=== PATIENT | male | born 1950 | race Caucasian/White ===

== ENCOUNTER 2017-11-12 06:27 | Emergency (ER) | payer MEDICARE ==
[~2017-11-12 06:27] MED LIST: APIX5TAB PO; ASPI-1181 PO; ATOR10 PO; FENO160T16 PO; LISI10TA7 PO; METO50TA18 PO; PANT40TA25 PO; SUCR1ORA3 PO
[2017-11-12] MEDS ORDERED: ONDANSETRON HCL 4 MG/2 ML VIAL ONE (06:58)
[2017-11-12] MEDS ORDERED: MORPHINE SULFATE 4 MG/1ML SYG ONE ×2 (06:59→08:36)
[2017-11-12 07:08] LABS: BASOPHILS % (AUTO) 0.6 % (0.0-5.0); EOSINOPHILS % (AUTO) 1.2 % (0.0-8.0); HEMATOCRIT 46.8 % (42-54); LYMPHOCYTES % (AUTO) 21.4 % (21.0-51.0); MEAN CORPUSCULAR HGB CONC 34.1 g/dL (32.0-36.0); MEAN CORPUSCULAR VOLUME 85.1 fL (79-99); MONOCYTES % (AUTO) 6.3 % (3.0-13.0); NEUTROPHILS % (AUTO) 70.5 % (40.0-77.0); PLATELET COUNT (AUTO) 260 K/uL (130-400); RED CELL DISTRIBUTION WIDTH 13.9 % (11.0-15.5); WHITE BLOOD COUNT (AUTO) 9.5 K/uL (4.8-10.8)
[2017-11-12 07:11] LABS: APPEARANCE,URINE Cloudy (CLEAR); BILIRUBIN,URINE Negative (NEGATIVE); COLOR,URINE Yellow (YELLOW); GLUCOSE, URINE (UA) Negative (NEGATIVE); KETONES,URINE Negative (NEGATIVE); LEUKOCYTE ESTERASE ,URINE Trace (NEGATIVE); NITRATE,URINE Negative (NEGATIVE); OCCULT BLOOD,URINE Large (NEGATIVE); PROTEIN,URINE POS 1+ (NEGATIVE)
[2017-11-12 07:18] LABS: CREATININE 1.3 mg/dL (0.5-1.5); POTASSIUM 4.6 mmol/L (3.5-5.1)
[2017-11-12 07:28] LABS: ALBUMIN 4.4 g/dL (3.5-5.0); BILIRUBIN,TOTAL 0.7 mg/dL (0.2-1.0); TOTAL PROTEIN, SERUM 8.7 g/dL (6.0-8.3)
[2017-11-12 07:31] LABS: BACTERIA,URINE Few /HPF (None Seen); WBC,URINE 0-1 /HPF (0-1)
[2017-11-12 07:32] LABS: AMORPHOUS SEDIMENT,UR Moderate /LPF (None Seen); SQUAMOUS EPITHELIAL CELL,UR Rare /HPF (0-2)
[2017-11-12 07:34] LABS: RBC,URINE >100 /HPF (0-1)
[2017-11-12] MEDS ORDERED: SODIUM CHLORIDE 0.9% 500ML 500 ML IV ONE (08:36)
[2017-11-12] MEDS ORDERED: KETOROLAC TROMETHAMINE 30MG/ML ONE (08:36)
[2017-11-12] MEDS ORDERED: PROMETHAZINE HCL 25 MG/ML 1ML AMPULE IM ONE (08:36)
== END 2017-11-12 09:57 | disposition home or self-care (01) ==
LOC: EDH 06:27
DX: N20.0 Calculus of kidney (principal); N13.30 Unspecified hydronephrosis; E78.5 Hyperlipidemia, unspecified; I10 Essential (primary) hypertension; I48.92 Unspecified atrial flutter; E11.9 Type 2 diabetes mellitus without complications; I25.10 Atherosclerotic heart disease of native coronary artery without angina pectoris; Z98.62 Peripheral vascular angioplasty status; Z79.4 Long term (current) use of insulin
CPT/HCPCS: 36415; 74176; 80053; 81001; 84484; 85025; 93005; 96374; 96375; 96376; 99285; J1885; J2270 ×2; J2405; J2550; J7040

== ENCOUNTER 2018-02-12 20:05 | Emergency (ER) | payer MEDICARE ==
[2018-02-12 20:36] LABS: APPEARANCE,URINE Cloudy (CLEAR); BILIRUBIN,URINE Negative (NEGATIVE); COLOR,URINE Yellow (YELLOW); GLUCOSE, URINE (UA) Negative (NEGATIVE); KETONES,URINE Negative (NEGATIVE); LEUKOCYTE ESTERASE ,URINE Trace (NEGATIVE); NITRATE,URINE Negative (NEGATIVE); OCCULT BLOOD,URINE Large (NEGATIVE); PH,URINE 6.5 (5.0-8.0); PROTEIN,URINE POS 1+ (NEGATIVE)
[2018-02-12 20:44] LABS: BACTERIA,URINE None Seen /HPF (None Seen); RBC,URINE 26-50 /HPF (0-1)
[2018-02-12] MEDS ORDERED: SODIUM CHLORIDE 0.9% 1000ML 2,000 ML IV ONE (20:46)
[2018-02-12] MEDS ORDERED: ONDANSETRON HCL 4 MG/2 ML VIAL ONE (20:46)
[2018-02-12] MEDS ORDERED: KETOROLAC TROMETHAMINE 30MG/ML ONE (20:47)
[2018-02-12] MEDS ORDERED: TAMSULOSIN HCL 0.4 MG CAP.ER.24H ONE (20:47)
[2018-02-12] MEDS ORDERED: TRAMADOL /APAP 37.5MG/325MG TAB ONE (20:48)
[2018-02-12 20:49] LABS: BASOPHILS % (AUTO) 0.4 % (0.0-5.0); EOSINOPHILS % (AUTO) 0.8 % (0.0-8.0); HEMATOCRIT 46.6 % (42-54); LYMPHOCYTES % (AUTO) 14.1 % (21.0-51.0); MEAN CORPUSCULAR HEMOGLOBIN 29.2 pg (27.0-33.0); MEAN CORPUSCULAR HGB CONC 33.8 g/dL (32.0-36.0); MEAN CORPUSCULAR VOLUME 86.5 fL (79-99); MONOCYTES % (AUTO) 8.5 % (3.0-13.0); NEUTROPHILS % (AUTO) 76.2 % (40.0-77.0); PLATELET COUNT (AUTO) 228 K/uL (130-400); RED BLOOD CELL COUNT(AUTO) 5.39 MIL/uL (4.50-6.20); RED CELL DISTRIBUTION WIDTH 13.9 % (11.0-15.5); WHITE BLOOD COUNT (AUTO) 13.2 K/uL (4.8-10.8)
[2018-02-12 20:59] LABS: CREATININE 1.7 mg/dL (0.5-1.5); POTASSIUM 4.5 mmol/L (3.5-5.1)
[2018-02-12 21:04] LABS: ALBUMIN 4.2 g/dL (3.5-5.0); BILIRUBIN,TOTAL 0.6 mg/dL (0.2-1.0); TOTAL PROTEIN, SERUM 8.8 g/dL (6.0-8.3)
[2018-02-12] MEDS ORDERED: ACETAMINOPHEN-CODEINE ELIXIR 5 ML UDCUP ONE (21:05)
[2018-02-12] MEDS ORDERED: CEFTRIAXONE SODIUM 1 GM ONE (21:05)
== END 2018-02-12 21:48 | disposition home or self-care (01) ==
LOC: EDH 20:05
DX: N39.0 Urinary tract infection, site not specified (principal); N20.1 Calculus of ureter; N23 Unspecified renal colic; I10 Essential (primary) hypertension; I48.91 Unspecified atrial fibrillation; I48.92 Unspecified atrial flutter; Z85.46 Personal history of malignant neoplasm of prostate; Z87.891 Personal history of nicotine dependence
CPT/HCPCS: 36415; 74176; 80053; 81001; 85025; 96374; 96375; 99285; J0696; J1885; J2405; J7030

== ENCOUNTER → 2021-11-14 | Outpatient (CLI) | payer MEDICARE ==
[~2021-11-14] MED LIST changes: +ALLO100T PO; -APIX5TAB PO; -ASPI-1181 PO; +ASPI-1443 PO; +CLOP75TA14 PO; +FAMO20TA8 PO; +LISI10TA24 PO; -LISI10TA7 PO; -PANT40TA25 PO; +POTA10TA19 PO; -SUCR1ORA3 PO; +TAMS-1 PO
== END | disposition home or self-care (01) ==
LOC: SHCH 09:32
PROVIDERS: ATTEND Internal Medicine Cardiovascular Disease
DX: I48.0 Paroxysmal atrial fibrillation (principal); I11.9 Hypertensive heart disease without heart failure; I48.92 Unspecified atrial flutter; Z95.5 Presence of coronary angioplasty implant and graft; Z98.890 Other specified postprocedural states
CPT/HCPCS: 93306

== ENCOUNTER 2022-06-03 01:36 | Inpatient (IN) | payer MEDICARE ==
[~2022-06-03] VITALS: Ht 185.4 cm; Wt 125.6 kg
[~2022-06-03 01:36] MED LIST changes: +CLOP-31 PO; -CLOP75TA14 PO
[2022-06-03 02:08] LABS: BASOPHILS % (AUTO) 0.6 % (0.0-5.0); EOSINOPHILS % (AUTO) 2.3 % (0.0-8.0); HEMATOCRIT 44.8 % (42-54); LYMPHOCYTES % (AUTO) 30.4 % (21.0-51.0); MEAN CORPUSCULAR HEMOGLOBIN 29.1 pg (27.0-33.0); MEAN CORPUSCULAR HGB CONC 34.2 g/dL (32.0-36.0); MEAN CORPUSCULAR VOLUME 85.3 fL (79-99); MONOCYTES % (AUTO) 10.1 % (3.0-13.0); NEUTROPHILS % (AUTO) 55.8 % (40.0-77.0); PLATELET COUNT (AUTO) 301 K/uL (130-400); RED BLOOD CELL COUNT(AUTO) 5.25 MIL/uL (4.50-6.20); RED CELL DISTRIBUTION WIDTH 13.7 % (11.0-15.5); WHITE BLOOD COUNT (AUTO) 9.4 K/uL (4.8-10.8)
[2022-06-03 02:55] LABS: CREATININE 1.2 mg/dL (0.5-1.5); POTASSIUM 4.3 mmol/L (3.5-5.1)
[2022-06-03 03:00] LABS: ALBUMIN 3.8 g/dL (3.5-5.0); MAGNESIUM 1.9 mg/dL (1.80-2.40); TOTAL PROTEIN, SERUM 7.7 g/dL (6.0-8.3)
[2022-06-03] MEDS ORDERED: HEPARIN 5,000 UNIT VIAL ONE (03:27)
[2022-06-03] MEDS ORDERED: HEPARIN 25,000 UNITS/250ML D5W 250 ML IV SCH (03:30)
[2022-06-03 03:40] LABS: PROTHROMBIN TIME 10.9 SEC (9.6-11.6)
[2022-06-03 03:41] LABS: PARTIAL THROMBOPLASTIN TIME 33.3 SEC (26.3-35.5)
[2022-06-03] MEDS ORDERED: LACTULOSE 20 GM/30 ML UDCUP PO PRN (04:30)
[2022-06-03] MEDS ORDERED: ONDANSETRON 4MG INJ IV PRN (04:30)
[2022-06-03] MEDS ORDERED: ACETAMINOPHEN 325 MG TAB PO PRN ×2 (04:30)
[2022-06-03] MEDS ORDERED: POTA-200 PO (06:04)
[2022-06-03] MEDS ORDERED: CLOP75TA32 PO (06:04)
[2022-06-03 08:39] LABS: INR 1.08 (0.85-1.15); PROTHROMBIN TIME 11.7 SEC (9.6-11.6)
[2022-06-03] MEDS ORDERED: FAMOTIDINE 20MG TAB PO SCH (09:00)
[2022-06-03 09:05] LABS: PARTIAL THROMBOPLASTIN TIME 103.9 SEC (26.3-35.5)
[2022-06-03 15:17] VITALS: BP 126/59
== END 2022-06-03 15:08 | disposition left against medical advice (07) | DRG 281 ==
LOC: EDH 01:36 → EDHIP 04:10
PROVIDERS: ADMIT Internal Medicine; ATTEND Internal Medicine
DX: I48.91 Unspecified atrial fibrillation (principal); I21.4 Non-ST elevation (NSTEMI) myocardial infarction; E87.1 Hypo-osmolality and hyponatremia; E78.00 Pure hypercholesterolemia, unspecified; I10 Essential (primary) hypertension; I25.10 Atherosclerotic heart disease of native coronary artery without angina pectoris; I48.92 Unspecified atrial flutter; Z53.29 Procedure and treatment not carried out because of patient's decision for other reasons; Z79.02 Long term (current) use of antithrombotics/antiplatelets; Z80.8 Family history of malignant neoplasm of other organs or systems; Z82.3 Family history of stroke; Z82.49 Family history of ischemic heart disease and other diseases of the circulatory system; Z87.442 Personal history of urinary calculi; Z95.5 Presence of coronary angioplasty implant and graft
CPT/HCPCS: 36415; 71045; 80053; 83735; 84484; 85025; 85610; 85730; 93005; 99291; G0378; J1644

== ENCOUNTER → 2022-09-22 | Outpatient (CLI) | payer MEDICARE ==
[~2022-09-22] MED LIST changes: -ATOR10 PO; +ATOR40TA71 PO; +CLOP75TA32 PO; -FAMO20TA8 PO; +POTA-200 PO; -POTA10TA19 PO
[2022-09-22 12:44] LABS: CREATININE 1.4 mg/dL (0.5-1.5); POTASSIUM 4.7 mmol/L (3.5-5.1); TOTAL PROTEIN, SERUM 8.4 g/dL (6.0-8.3)
== END | disposition home or self-care (01) ==
LOC: LAB 09:11
PROVIDERS: ATTEND Physician Assistant
DX: I48.0 Paroxysmal atrial fibrillation (principal); I11.9 Hypertensive heart disease without heart failure; Z79.82 Long term (current) use of aspirin; Z95.5 Presence of coronary angioplasty implant and graft; Z79.899 Other long term (current) drug therapy
CPT/HCPCS: 36415; 80053; 80061

== ENCOUNTER 2023-01-02 08:28 | Day surgery (SDC) | payer MEDICARE ==
[2022-12-31 09:25] LABS: BASOPHILS # (AUTO) 0.05 K/uL (0.00-0.20); BASOPHILS % (AUTO) 0.7 % (0.0-5.0); EOSINOPHILS # (AUTO) 0.13 K/uL (0.00-0.70); EOSINOPHILS % (AUTO) 1.9 % (0.0-8.0); HEMATOCRIT 43.5 % (42-54); IMMATURE GRANULOCYTE ABSOLUTE 0.07 K/uL (0-1); LYMPHOCYTES # (AUTO) 2.1 K/uL (1.0-4.8); LYMPHOCYTES % (AUTO) 30.5 % (21.0-51.0); MEAN CORPUSCULAR HEMOGLOBIN 28.7 pg (27.0-33.0); MEAN CORPUSCULAR HGB CONC 32.6 g/dL (32.0-36.0); MEAN CORPUSCULAR VOLUME 88.1 fL (79-99); MONOCYTES # (AUTO) 0.6 K/uL (0.1-1.0); MONOCYTES % (AUTO) 8.9 % (3.0-13.0); PLATELET COUNT (AUTO) 240 K/uL (130-400); RED BLOOD CELL COUNT(AUTO) 4.94 MIL/uL (4.50-6.20); RED CELL DISTRIBUTION WIDTH 14.5 % (11.0-15.5)
[2022-12-31 09:54] LABS: CREATININE 1.4 mg/dL (0.5-1.5); POTASSIUM 4.5 mmol/L (3.5-5.1)
[2022-12-31 10:03] VITALS: BP 135/62; PULSE 70; RESP 20
[~2023-01-02] VITALS: Ht 185.4 cm; Wt 122.7 kg
[2023-01-02] VITALS (16 sets, daily range): BP systolic 92–150; BP diastolic 43–94; PULSE 58–79; RESP 13–18
[~2023-01-02 08:28] MED LIST changes: -ASPI-1443 PO; +DRON400T7 PO; +METO25 PO; -METO50TA18 PO
[2023-01-02] MEDS ORDERED: FENTANYL CITRATE PF 50 MCG/1 ML 2ML VIAL ONE (08:47)
[2023-01-02] MEDS ORDERED: NALOXONE HCL 0.4 MG/1 ML ML ONE (08:47)
[2023-01-02] MEDS ORDERED: FLUMAZENIL 0.1MG/1ML 5ML VIAL IV ONE (08:47)
[2023-01-02] MEDS ORDERED: MIDAZOLAM HCL 1 MG/ML 2ML VIAL ONE (08:47)
[2023-01-02] MEDS ORDERED: LIDOCAINE HCL 2% VISCOUS 15 ML UDCUP ONE (09:20)
[2023-01-02] MEDS ORDERED: SUCCINYLCHOLINE CHLORIDE 20 MG/ML 10 ML VIAL ONE (10:53)
[2023-01-02] MEDS ORDERED: LIDOCAINE PF 100MG/5ML (2%) SYRINGE 5ML ONE (10:53)
[2023-01-02] MEDS ORDERED: KETAMINE 50MG/ML SYRINGE 50 MG/ML DISP.SYRIN ONE (10:54)
[2023-01-02] MEDS ORDERED: PROPOFOL 10 MG/ML 20ML VIAL IV ONE (10:54)
[2023-01-07] MEDS ORDERED: AMIO200T44 PO (08:22)
[2023-01-07] MEDS ORDERED: VERA120C2 PO (08:22)
[2023-01-07] MEDS ORDERED: FAMO20TA8 PO (08:22)
== END 2023-01-02 12:20 | disposition home or self-care (01) ==
LOC: DAH 08:28 → EDSTATUS 12:00 → DAH 12:20
PROVIDERS: ATTEND Student in an Organized Health Care Education/Training Program
DX: I48.0 Paroxysmal atrial fibrillation (principal); I37.1 Nonrheumatic pulmonary valve insufficiency; I10 Essential (primary) hypertension; Z79.01 Long term (current) use of anticoagulants; Z79.899 Other long term (current) drug therapy; Z95.5 Presence of coronary angioplasty implant and graft; Z98.890 Other specified postprocedural states; Z79.82 Long term (current) use of aspirin; Z90.89 Acquired absence of other organs; Z82.49 Family history of ischemic heart disease and other diseases of the circulatory system; Z82.3 Family history of stroke
CPT/HCPCS: 80048; 85025; 36415; 93005; 93325; 93312; J3010; J0330; J2001; J2250; J2704; J3490; A4215; A4223 ×3; A7002; A4222; A4221; A4663; A4216; A4606; 99152; 99153; J2310; G0500

== ENCOUNTER 2023-03-05 05:56 | Observation (INO) | payer MEDICARE ==
[2023-03-03 09:35] VITALS: BP 172/65; PULSE 60; RESP 16
[2023-03-03 09:52] LABS: BASOPHILS # (AUTO) 0.04 K/uL (0.00-0.20); BASOPHILS % (AUTO) 0.6 % (0.0-5.0); EOSINOPHILS # (AUTO) 0.18 K/uL (0.00-0.70); EOSINOPHILS % (AUTO) 2.8 % (0.0-8.0); HEMATOCRIT 42.5 % (42-54); IMMATURE GRANULOCYTE ABSOLUTE 0.05 K/uL (0-1); LYMPHOCYTES # (AUTO) 1.9 K/uL (1.0-4.8); LYMPHOCYTES % (AUTO) 29.5 % (21.0-51.0); MEAN CORPUSCULAR VOLUME 90.6 fL (79-99); MONOCYTES # (AUTO) 0.6 K/uL (0.1-1.0); MONOCYTES % (AUTO) 9.1 % (3.0-13.0); NEUTROPHILS # (AUTO) 3.7 K/uL (1.8-7.7); NEUTROPHILS % (AUTO) 57.2 % (40.0-77.0); PLATELET COUNT (AUTO) 253 K/uL (130-400); RED BLOOD CELL COUNT(AUTO) 4.69 MIL/uL (4.50-6.20); RED CELL DISTRIBUTION WIDTH 14.6 % (11.0-15.5); WHITE BLOOD COUNT (AUTO) 6.4 K/uL (4.8-10.8)
[2023-03-03 10:00] LABS: INR 1.02 (0.85-1.15); PROTHROMBIN TIME 11.8 SEC (9.6-11.6)
[2023-03-03 10:01] LABS: PARTIAL THROMBOPLASTIN TIME 38.3 SEC (26.3-35.5)
[2023-03-03 10:02] LABS: CREATININE 1.4 mg/dL (0.5-1.5); POTASSIUM 4.5 mmol/L (3.5-5.1)
[2023-03-05] VITALS (21 sets, daily range): BP systolic 121–178; BP diastolic 53–76; PULSE 57–79; RESP 14–22; O2SAT 96–98
[~2023-03-05] VITALS: Ht 185.4 cm; Wt 126.8 kg
[~2023-03-05 05:56] MED LIST changes: +AMIO200T68 PO; +APIX5TAB PO; -CLOP-31 PO; -DRON400T7 PO; -METO25 PO; +VERA120C2 PO
[2023-03-05] MEDS ORDERED: 0.9%NACL 1000ML 1,000 ML IV ONE (06:19)
[2023-03-05] MEDS ORDERED: ONDANSETRON 4MG INJ ONE (06:50)
[2023-03-05] MEDS ORDERED: SUCCINYLCHOLINE 200MG/10ML SYR ONE (06:50)
[2023-03-05] MEDS ORDERED: PROPOFOL 10 MG/ML 20ML VIAL IV ONE (06:50)
[2023-03-05] MEDS ORDERED: DEXAMETHASONE SOD PHOSPHATE 10MG/ML 1ML VIAL ONE (06:50)
[2023-03-05] MEDS ORDERED: LIDOCAINE PF 100MG/5ML (2%) SYRINGE 5ML ONE (06:50)
[2023-03-05] MEDS ORDERED: MIDAZOLAM HCL 1 MG/ML 2ML VIAL ONE (06:50)
[2023-03-05] MEDS ORDERED: FENTANYL CITRATE PF 50 MCG/1 ML 2ML VIAL ONE (06:51)
[2023-03-05] MEDS ORDERED: ROCURONIUM 10MG/1ML SYR 10 MG/ML ML ONE (06:51)
[2023-03-05] MEDS ORDERED: HEPARIN 10,000 UNIT/10ML (1,000 UNIT/ML) VIAL ONE ×2 (07:44→09:21)
[2023-03-05] MEDS ORDERED: LIDOCAINE HCL 1% MDV 50ML VIAL ONE (07:44)
[2023-03-05] MEDS ORDERED: PHENYLEPHRINE HCL 10 MG/ML 1ML VIAL IV ONE (08:05)
[2023-03-05] MEDS ORDERED: EPHEDRINE SULFATE 50 MG/ML AMPULE ONE ×2 (08:08→08:46)
[2023-03-05] MEDS ORDERED: ISOPROTERENOL HCL 0.2 MG/ML AMP/VIAL/BAG ONE (08:36)
[2023-03-05] MEDS ORDERED: GLYCOPYRROLATE 0.2 MG/ML 5 ML VIAL ONE (08:46)
[2023-03-05] MEDS ORDERED: PROTAMINE SULFATE 10 MG/ML 25ML VIAL IV ONE (11:55)
[2023-03-05] MEDS ORDERED: SUGAMMADEX SODIUM 200 MG/2 ML VIAL IV ONE (12:04)
[2023-03-05] MEDS ORDERED: PANTOPRAZOLE 40 MG TAB DR PO SCH (14:00)
[2023-03-05] MEDS: SUCRALFATE 1 GM TABLET PO SCH ×2 (14:27→20:04)
[2023-03-06 00:59] VITALS: BP 144/73; PULSE 74; RESP 18
[2023-03-06] MEDS: SUCRALFATE 1 GM TABLET PO SCH ×2 (02:00→08:20)
[2023-03-06 03:25] VITALS: BP 153/70; PULSE 72; RESP 20
[2023-03-06 07:29] VITALS: BP 150/62; PULSE 78; RESP 18
[2023-03-06 08:00] VITALS: O2SAT 98
[2023-03-06] MEDS ORDERED: PANTOPRAZOLE 40 MG TAB DR PO SCH (09:00)
[2023-03-06] MEDS ORDERED: PANT40TA55 PO (10:04)
[2023-03-06] MEDS ORDERED: SUCR1TAB2 PO (10:04)
[2023-03-06 12:18] VITALS: BP 152/58; PULSE 66; RESP 18
== END 2023-03-06 13:43 | disposition home or self-care (01) ==
LOC: DAH 05:56 → DAHIP 05:57 → DAH 05:57 → 2AH 13:23
PROVIDERS: ADMIT Internal Medicine Cardiovascular Disease; ATTEND Internal Medicine Cardiovascular Disease
DX: I48.0 Paroxysmal atrial fibrillation (principal); I48.3 Typical atrial flutter; I25.10 Atherosclerotic heart disease of native coronary artery without angina pectoris; I26.99 Other pulmonary embolism without acute cor pulmonale; I25.2 Old myocardial infarction; I73.9 Peripheral vascular disease, unspecified; K21.9 Gastro-esophageal reflux disease without esophagitis; E66.01 Morbid (severe) obesity due to excess calories; Z79.899 Other long term (current) drug therapy; Z68.36 Body mass index [BMI] 36.0-36.9, adult
CPT/HCPCS: 80048; 85025; 85610; 85730; 36415 ×2; 93005; 93622; 93655; 93656; 93657; 85347 ×6; A4344; C1894 ×3; C1732 ×2; C1731; A4649 ×2; C1766; G0378 ×25; J3010; J0330; J1100; J7030; J2720; J2001; J3490 ×4; J1644 ×4; J2250; J2704; J2405; J2371; A4215; A4223 ×3; A4222; A4221; A4663; A4216; A4606

== ENCOUNTER → 2023-04-03 | Outpatient (CLI) | payer MEDICARE ==
[~2023-04-03] MED LIST changes: +PANT40TA55 PO; +SUCR1TAB2 PO
[2023-04-03 15:15] LABS: BASOPHILS # (AUTO) 0.06 K/uL (0.00-0.20); BASOPHILS % (AUTO) 0.8 % (0.0-5.0); EOSINOPHILS # (AUTO) 0.17 K/uL (0.00-0.70); EOSINOPHILS % (AUTO) 2.2 % (0.0-8.0); HEMATOCRIT 43.8 % (42-54); IMMATURE GRANULOCYTE ABSOLUTE 0.07 K/uL (0-1); LYMPHOCYTES # (AUTO) 2.3 K/uL (1.0-4.8); LYMPHOCYTES % (AUTO) 29.6 % (21.0-51.0); MEAN CORPUSCULAR HEMOGLOBIN 28.7 pg (27.0-33.0); MEAN CORPUSCULAR HGB CONC 32.2 g/dL (32.0-36.0); MEAN CORPUSCULAR VOLUME 89.2 fL (79-99); MONOCYTES # (AUTO) 0.9 K/uL (0.1-1.0); MONOCYTES % (AUTO) 11.8 % (3.0-13.0); NEUTROPHILS # (AUTO) 4.2 K/uL (1.8-7.7); NEUTROPHILS % (AUTO) 54.7 % (40.0-77.0); PLATELET COUNT (AUTO) 262 K/uL (130-400); RED BLOOD CELL COUNT(AUTO) 4.91 MIL/uL (4.50-6.20); RED CELL DISTRIBUTION WIDTH 14.6 % (11.0-15.5); WHITE BLOOD COUNT (AUTO) 7.7 K/uL (4.8-10.8)
[2023-04-03 15:34] LABS: BILIRUBIN,TOTAL 0.4 mg/dL (0.2-1.0); CREATININE 1.7 mg/dL (0.5-1.5); MAGNESIUM 2.1 mg/dL (1.80-2.40); POTASSIUM 5.1 mmol/L (3.5-5.1); TOTAL PROTEIN, SERUM 8.4 g/dL (6.0-8.3)
== END | disposition home or self-care (01) ==
LOC: LAB 11:31
PROVIDERS: ATTEND Physician Assistant
DX: I25.10 Atherosclerotic heart disease of native coronary artery without angina pectoris (principal); I48.0 Paroxysmal atrial fibrillation
CPT/HCPCS: 36415; 80053; 83735; 85025

== ENCOUNTER 2023-04-10 04:30 | Observation (INO) | payer MEDICARE ==
[~2023-04-10] VITALS: Ht 185.4 cm; Wt 122.7 kg
[2023-04-10 05:18] LABS: BASOPHILS # (AUTO) 0.04 K/uL (0.00-0.20); BASOPHILS % (AUTO) 0.6 % (0.0-5.0); EOSINOPHILS # (AUTO) 0.11 K/uL (0.00-0.70); EOSINOPHILS % (AUTO) 1.7 % (0.0-8.0); HEMATOCRIT 42.8 % (42-54); IMMATURE GRANULOCYTE ABSOLUTE 0.05 K/uL (0-1); LYMPHOCYTES # (AUTO) 1.4 K/uL (1.0-4.8); LYMPHOCYTES % (AUTO) 21.5 % (21.0-51.0); MEAN CORPUSCULAR HEMOGLOBIN 29.5 pg (27.0-33.0); MEAN CORPUSCULAR HGB CONC 32.5 g/dL (32.0-36.0); MEAN CORPUSCULAR VOLUME 90.9 fL (79-99); MONOCYTES # (AUTO) 0.5 K/uL (0.1-1.0); MONOCYTES % (AUTO) 7.8 % (3.0-13.0); NEUTROPHILS # (AUTO) 4.3 K/uL (1.8-7.7); NEUTROPHILS % (AUTO) 67.6 % (40.0-77.0); PLATELET COUNT (AUTO) 229 K/uL (130-400); RED BLOOD CELL COUNT(AUTO) 4.71 MIL/uL (4.50-6.20); RED CELL DISTRIBUTION WIDTH 14.1 % (11.0-15.5); WHITE BLOOD COUNT (AUTO) 6.4 K/uL (4.8-10.8)
[2023-04-10 05:22] LABS: APPEARANCE,URINE CLEAR (CLEAR); BILIRUBIN,URINE NEGATIVE (NEGATIVE); COLOR,URINE LIGHT-YELLOW (YELLOW); GLUCOSE, URINE (UA) NEGATIVE (NEGATIVE); KETONES,URINE NEGATIVE (NEGATIVE); LEUKOCYTE ESTERASE ,URINE NEGATIVE Leu/uL (NEGATIVE); NITRATE,URINE NEGATIVE (NEGATIVE); OCCULT BLOOD,URINE NEGATIVE (NEGATIVE); PH,URINE 5.5 (5.0-8.0); PROTEIN,URINE NEGATIVE (NEGATIVE); UROBILINOGEN,URINE 0.2 mg/dL (0.2-1.0)
[2023-04-10 05:23] LABS: ADD UA MICROSCOPIC NO
[2023-04-10 05:27] LABS: CREATININE 1.6 mg/dL (0.5-1.5); POTASSIUM 4.5 mmol/L (3.5-5.1)
[2023-04-10 05:36] LABS: ALBUMIN 3.7 g/dL (3.5-5.0); BILIRUBIN,TOTAL 0.2 mg/dL (0.2-1.0); TOTAL PROTEIN, SERUM 7.9 g/dL (6.0-8.3)
[2023-04-10] MEDS ORDERED: ONDANSETRON 4MG INJ ONE (05:49)
[2023-04-10] MEDS ORDERED: MORPHINE 2 MG SYG ONE (05:49)
[2023-04-10] MEDS ORDERED: MORPHINE 2 MG SYG IVP ONE (06:00)
[2023-04-10] MEDS ORDERED: ONDANSETRON 4MG INJ IVP ONE (06:00)
[2023-04-10] MEDS ORDERED: TEMAZEPAM 15 MG CAPSULE PO PRN (07:00)
[2023-04-10] MEDS ORDERED: ASPIRIN 81MG CHEW TAB PO ONE (07:00)
[2023-04-10] MEDS ORDERED: ACETAMINOPHEN 650 MG SUPPOSITORY RC PRN (07:00)
[2023-04-10] MEDS ORDERED: LABETALOL 20MG SYG IV PRN (07:00)
[2023-04-10] MEDS ORDERED: ACETAMINOPHEN 325 MG TAB PO PRN (07:00)
[2023-04-10] MEDS ORDERED: IPRATROPIUM/ALBUTEROL SULFATE 3 ML SOLUTION IH PRN (07:00)
[2023-04-10] MEDS ORDERED: HYDRALAZINE 20MG/ML VIAL IV PRN (07:00)
[2023-04-10] MEDS ORDERED: ALBUTEROL 0.083% 2.5 MG/3 ML INH IH PRN (07:00)
[2023-04-10] MEDS ORDERED: CLONIDINE HCL 0.1 MG TABLET PO PRN (07:00)
[2023-04-10] MEDS ORDERED: LACTULOSE 20 GM/30 ML UDCUP PO PRN (07:00)
[2023-04-10] MEDS ORDERED: DOCUSATE SODIUM 100 MG CAP PO PRN (07:00)
[2023-04-10] MEDS ORDERED: NITROGLYCERIN 0.4 MG SL TAB SL PRN (07:00)
[2023-04-10] MEDS: INSULIN HUMULIN R 100 UNIT/ML 3ML SQ SCH ×2 (07:30→11:30)
[2023-04-10] MEDS: PANTOPRAZOLE 40 MG/VIAL IVP SCH ×2 (08:35→19:41)
[2023-04-10] MEDS ORDERED: FAMO20TA8 PO (08:56)
[2023-04-10] MEDS ORDERED: ENOXAPARIN SODIUM 40 MG/0.4 ML SYRINGE SQ SCH (09:00)
[2023-04-10] MEDS: ONDANSETRON 4MG INJ IVP PRN ×2 (09:42→11:56)
[2023-04-10] MEDS ORDERED: MORPHINE 2 MG SYG IVP PRN (10:00)
[2023-04-10 11:30] VITALS: BP 142/79; PULSE 62; RESP 16
[2023-04-10] MEDS ORDERED: HYDROMORPHONE 0.5 MG SYG (0.5MG/0.5ML) IVP PRN (12:00)
[2023-04-10] MEDS ORDERED: HYDROCODONE/ACETAMINOPHEN 7.5/325 MG TAB PO PRN (12:30)
[2023-04-10] MEDS: SUCRALFATE 1 GM TABLET PO SCH ×3 (13:00→19:41)
[2023-04-10 19:20] VITALS: O2SAT 99
[2023-04-10] MEDS: POTASSIUM CHLORIDE 10MEQ SR TAB PO SCH (19:41)
[2023-04-10 20:00] VITALS: BP 155/63; PULSE 63; RESP 18
[2023-04-10] MEDS ORDERED: Fenofibrate 160 MG PO SCH (21:00)
[2023-04-10] MEDS ORDERED: TAMSULOSIN HCL 0.4 MG CAP.ER.24H PO SCH (21:00)
[2023-04-10] MEDS ORDERED: LISINOPRIL 10 MG TABLET PO SCH (21:00)
[2023-04-10] MEDS ORDERED: ATORVASTATIN 40 MG TABLET PO SCH ×2 (21:00)
[2023-04-10 23:49] VITALS: BP 158/71; PULSE 65; RESP 18
[2023-04-11 04:00] VITALS: BP 152/69; PULSE 65; RESP 18
[2023-04-11 04:51] LABS: BASOPHILS # (AUTO) 0.04 K/uL (0.00-0.20); BASOPHILS % (AUTO) 0.4 % (0.0-5.0); EOSINOPHILS # (AUTO) 0.11 K/uL (0.00-0.70); EOSINOPHILS % (AUTO) 1.1 % (0.0-8.0); HEMATOCRIT 40.9 % (42-54); IMMATURE GRANULOCYTE ABSOLUTE 0.05 K/uL (0-1); LYMPHOCYTES # (AUTO) 1.5 K/uL (1.0-4.8); LYMPHOCYTES % (AUTO) 14.5 % (21.0-51.0); MEAN CORPUSCULAR HEMOGLOBIN 29.1 pg (27.0-33.0); MEAN CORPUSCULAR HGB CONC 32.8 g/dL (32.0-36.0); MEAN CORPUSCULAR VOLUME 88.9 fL (79-99); MONOCYTES # (AUTO) 1.1 K/uL (0.1-1.0); MONOCYTES % (AUTO) 10.6 % (3.0-13.0); NEUTROPHILS # (AUTO) 7.4 K/uL (1.8-7.7); NEUTROPHILS % (AUTO) 72.9 % (40.0-77.0); PLATELET COUNT (AUTO) 237 K/uL (130-400); RED CELL DISTRIBUTION WIDTH 14.2 % (11.0-15.5); WHITE BLOOD COUNT (AUTO) 10.1 K/uL (4.8-10.8)
[2023-04-11 05:05] LABS: CREATININE 1.4 mg/dL (0.5-1.5); MAGNESIUM 1.8 mg/dL (1.80-2.40); PHOSPHORUS 3.5 mg/dL (2.5-4.9); POTASSIUM 4.7 mmol/L (3.5-5.1)
[2023-04-11 06:37] VITALS: PULSE 65; RESP 18; O2SAT 98
[2023-04-11 07:05] VITALS: BP 132/49; PULSE 60; RESP 20
[2023-04-11] MEDS: SUCRALFATE 1 GM TABLET PO SCH ×2 (09:00→13:00)
[2023-04-11] MEDS ORDERED: ENOXAPARIN SODIUM 40 MG/0.4 ML SYRINGE SQ SCH (09:00)
[2023-04-11] MEDS ORDERED: FAMOTIDINE 20MG TAB PO SCH (09:00)
[2023-04-11] MEDS ORDERED: ENOXAPARIN SODIUM 100 MG/1 ML SQ SCH (09:00)
[2023-04-11] MEDS ORDERED: ASPIRIN 81MG CHEW TAB PO SCH (09:00)
[2023-04-11] MEDS: POTASSIUM CHLORIDE 10MEQ SR TAB PO SCH (09:00)
[2023-04-11] MEDS ORDERED: ALLOPURINOL 100 MG TABLET PO SCH (09:00)
[2023-04-11] MEDS ORDERED: AMIODARONE 200 MG TABLET PO SCH (09:00)
[2023-04-11] MEDS ORDERED: VERAPAMIL 120 MG PO SCH (09:00)
[2023-04-11] MEDS: PANTOPRAZOLE 40 MG/VIAL IVP SCH (09:04)
[2023-04-11 11:28] VITALS: BP 133/47; PULSE 51; RESP 20
[2023-04-11 15:05] VITALS: BP 129/59; PULSE 65; RESP 20
== END 2023-04-11 17:50 | disposition home or self-care (01) ==
LOC: EDH 04:30 → EDHIP 06:32 → 4CH 11:30
PROVIDERS: ADMIT Internal Medicine Critical Care Medicine; ATTEND Internal Medicine Critical Care Medicine
DX: K80.20 Calculus of gallbladder without cholecystitis without obstruction (principal); I48.91 Unspecified atrial fibrillation; I25.10 Atherosclerotic heart disease of native coronary artery without angina pectoris; G47.33 Obstructive sleep apnea (adult) (pediatric); I13.0 Hypertensive heart and chronic kidney disease with heart failure and stage 1 through stage 4 chronic kidney disease, or unspecified chronic kidney disease; N18.30 Chronic kidney disease, stage 3 unspecified; I50.32 Chronic diastolic (congestive) heart failure; E66.9 Obesity, unspecified; F19.90 Other psychoactive substance use, unspecified, uncomplicated; E78.00 Pure hypercholesterolemia, unspecified; K21.9 Gastro-esophageal reflux disease without esophagitis; Z95.5 Presence of coronary angioplasty implant and graft; Z79.02 Long term (current) use of antithrombotics/antiplatelets; Z79.899 Other long term (current) drug therapy; Z95.0 Presence of cardiac pacemaker; Z68.35 Body mass index [BMI] 35.0-35.9, adult
CPT/HCPCS: 96374; 96376 ×2; 96372; 96375; 99285; 82550; 84484 ×3; 80053; 83690; 85025 ×2; 81003; 36415 ×2; 78226; 76705; 93005; 83735; 84100; 80048; G0378 ×35; J2270 ×2; J2405 ×2; C9113 ×3; J1650; A9537

== ENCOUNTER 2023-05-21 07:55 | Day surgery (SDC) | payer MEDICARE ==
[2023-05-19 10:12] LABS: BASOPHILS # (AUTO) 0.04 K/uL (0.00-0.20); BASOPHILS % (AUTO) 0.6 % (0.0-5.0); EOSINOPHILS # (AUTO) 0.18 K/uL (0.00-0.70); EOSINOPHILS % (AUTO) 2.8 % (0.0-8.0); HEMATOCRIT 41.6 % (42-54); IMMATURE GRANULOCYTE ABSOLUTE 0.04 K/uL (0-1); LYMPHOCYTES % (AUTO) 30.5 % (21.0-51.0); MEAN CORPUSCULAR HEMOGLOBIN 28.7 pg (27.0-33.0); MEAN CORPUSCULAR HGB CONC 32.5 g/dL (32.0-36.0); MEAN CORPUSCULAR VOLUME 88.3 fL (79-99); MONOCYTES # (AUTO) 0.6 K/uL (0.1-1.0); MONOCYTES % (AUTO) 8.7 % (3.0-13.0); NEUTROPHILS # (AUTO) 3.7 K/uL (1.8-7.7); NEUTROPHILS % (AUTO) 56.8 % (40.0-77.0); PLATELET COUNT (AUTO) 262 K/uL (130-400); RED BLOOD CELL COUNT(AUTO) 4.71 MIL/uL (4.50-6.20); RED CELL DISTRIBUTION WIDTH 14.4 % (11.0-15.5); WHITE BLOOD COUNT (AUTO) 6.4 K/uL (4.8-10.8)
[2023-05-19 10:20] LABS: CREATININE 1.4 mg/dL (0.5-1.5); POTASSIUM 4.4 mmol/L (3.5-5.1)
[2023-05-19 10:22] LABS: INR 0.97 (0.85-1.15); PROTHROMBIN TIME 11.3 SEC (9.6-11.6)
[2023-05-19 10:24] LABS: PARTIAL THROMBOPLASTIN TIME 33.9 SEC (26.3-35.5)
[2023-05-19 15:11] VITALS: BP 148/64; PULSE 59; RESP 17
[~2023-05-21] VITALS: Ht 185.4 cm; Wt 119.3 kg
[2023-05-21] VITALS (8 sets, daily range): BP systolic 125–154; BP diastolic 50–79; PULSE 60–72; RESP 14–18
[~2023-05-21 07:55] MED LIST changes: -APIX5TAB PO; -ATOR40TA71 PO; -CLOP75TA32 PO; -PANT40TA55 PO; -POTA-200 PO; +POTA-277 PO; -SUCR1TAB2 PO
[2023-05-21] MEDS ORDERED: BUPIVACAINE/PF 0.25% 30ML VIAL IJ ONE (08:39)
[2023-05-21] MEDS ORDERED: CEFAZOLIN SODIUM 1 GM VIAL ONE ×2 (08:39→10:50)
[2023-05-21] MEDS ORDERED: IOHEXOL-350 50ML VIAL IV ONE ×3 (08:39→12:42)
[2023-05-21] MEDS ORDERED: LIDOCAINE HCL 1% MDV 50ML VIAL ONE ×2 (08:39→10:49)
[2023-05-21] MEDS ORDERED: 0.9%NACL 1000ML 1,000 ML IV ONE (10:38)
[2023-05-21] MEDS ORDERED: MEPERIDINE-PF 25 MG/ML SYG ONE ×4 (10:50→13:29)
[2023-05-21] MEDS ORDERED: MIDAZOLAM HCL 1 MG/ML 2ML VIAL ONE ×4 (10:50→13:29)
[2023-05-21] MEDS ORDERED: LIDOCAINE HCL 400MG/20ML VIAL ONE (11:19)
[2023-05-21] MEDS ORDERED: HEPARIN 10,000 UNIT/10ML (1,000 UNIT/ML) VIAL ONE (11:46)
[2023-05-21] MEDS ORDERED: BACITRACIN 1 EACH PACKET TP ONE (13:17)
[2023-05-21] MEDS ORDERED: ACETAMINOPHEN 500 MG TABLET PO PRN (15:30)
[2023-05-21] MEDS ORDERED: ACETAMINOPHEN WITH CODEINE 1 TAB TAB PO PRN (15:30)
== END 2023-05-21 18:30 | disposition home or self-care (01) ==
LOC: DAH 07:55
PROVIDERS: ATTEND Internal Medicine Cardiovascular Disease
DX: I49.5 Sick sinus syndrome (principal); I48.0 Paroxysmal atrial fibrillation; I44.0 Atrioventricular block, first degree; I48.4 Atypical atrial flutter; I10 Essential (primary) hypertension; I25.2 Old myocardial infarction; Z95.5 Presence of coronary angioplasty implant and graft; Z90.89 Acquired absence of other organs; Z98.890 Other specified postprocedural states; Z79.01 Long term (current) use of anticoagulants; Z79.899 Other long term (current) drug therapy
CPT/HCPCS: 80048; 85025; 85610; 85730; 36415; 33208; 93619; 93650; 71045; C1894; C1785; C1898 ×2; A4649 ×2; C1732; J0690; J3490 ×2; J7030; J0665; J1644 ×2; J2250 ×4; J2175 ×4; Q9967 ×2; A4215; A4222; A4221; A4663; A4216; A4606; A4223 ×3; 99156; 99157

== ENCOUNTER → 2024-05-16 | Outpatient (CLI) | payer MEDICARE ==
[~2024-05-16] MED LIST changes: +AMIO200T44 PO; -AMIO200T68 PO; +ASPI-1005 PO; +FAMO20TA8 PO; +LEVO150 PO; -VERA120C2 PO
[2024-05-16 12:41] LABS: CREATININE 1.7 mg/dL (0.5-1.3); POTASSIUM 4.8 mmol/L (3.5-5.1)
== END | disposition home or self-care (01) ==
LOC: LAB 08:54
PROVIDERS: ATTEND Internal Medicine Cardiovascular Disease
DX: I10 Essential (primary) hypertension (principal)
CPT/HCPCS: 36415; 80048

== ENCOUNTER → 2024-05-23 | Outpatient (CLI) | payer MEDICARE, OTHER ==
[~2024-05-23] MED LIST changes: +IOHEXOL-350 75 ML VIAL IV ONE
--- NOTE | 2024-05-23 09:18 | HMCIMG ---
CT ANGIO HEAD AND NECK HISTORY: Occlusion and stenosis of carotid artery COMPARISON: Ultrasound from 06/22/2023 TECHNIQUE: CT angiography of the head was performed. The study was performed using angiographic technique with maximum intensity projection reconstruction images. Patient was given 75 cc of Omnipaque through intravenous route. FINDINGS: The ventricles and extraventricular CSF spaces are nondilated for patient's age. There is no midline shift, mass effect or herniation. No acute intracranial bleed is seen. Visualized portion of the paranasal sinuses are grossly within normal limits. 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 evidence of abnormal arteriovenous communication is seen. Diffuse atherosclerosis changes are present. Vertebrobasilar arterial system is grossly within normal limits. IMPRESSION: CTA Head 1. Atherosclerotic disease. 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 TECHNIQUE: CT angiography of the neck was performed. The study was performed using angiographic technique with maximum intensity projection reconstruction images. FINDINGS: There are degenerative changes of the cervical spine. Parapharyngeal fat planes are preserved bilaterally. The airway is patent. Normal enhancement of the thyroid gland is noted. Visualized portion of the lung apices are unremarkable. The common, internal and external carotid arteries are visualized. 60-70% stenosis is seen of the right internal carotid artery with calcified plaque. 70-80% stenosis is seen of left internal carotid artery with calcified plaques. Both vertebral arteries are seen with antegrade flow. IMPRESSION: CTA Neck 1. Atherosclerotic disease. 2. 60-70% stenosis is seen of the right internal carotid artery with calcified plaque. 3. 70-80% stenosis is seen of left internal carotid artery with calcified plaques. CT was performed with one or more following dose reduction techniques: automated exposure control, adjustment of the mA and kv according to patient's size, or use of a iterative reconstruction technique.
== END | disposition home or self-care (01) ==
LOC: RAH 07:39
PROVIDERS: ATTEND Internal Medicine Cardiovascular Disease
DX: I65.23 Occlusion and stenosis of bilateral carotid arteries (principal); M47.812 Spondylosis without myelopathy or radiculopathy, cervical region; I67.1 Cerebral aneurysm, nonruptured; I70.90 Unspecified atherosclerosis
CPT/HCPCS: 70496; 70498; Q9967

== ENCOUNTER → 2024-05-25 | Outpatient (CLI) | payer MEDICARE, OTHER ==
[~2024-05-25] MED LIST changes: -IOHEXOL-350 75 ML VIAL IV ONE
== END | disposition home or self-care (01) ==
LOC: RESP 12:36
PROVIDERS: ATTEND Internal Medicine Cardiovascular Disease
DX: R06.00 Dyspnea, unspecified (principal)
CPT/HCPCS: 94060; 94729

== ENCOUNTER → 2024-06-15 | Outpatient (CLI) | payer MEDICARE, OTHER ==
--- NOTE | 2024-06-15 15:41 | HMCIMG ---
CT CHEST HIGH RESOLUTION (WO) REASON: Shortness of breath COMPARISON: 11/19/2016 TECHNIQUE: Axial images are obtained from thoracic inlet through the lung bases without IV contrast. Additional high-resolution 1 mm sections are obtained at intervals throughout both lungs in inspiration and expiration. FINDINGS: Lungs are clear. There are no focal masses or infiltrates. There is normal appearing interstitial pattern. There is no bronchiectasis. There are no blebs or bulla. There is no honeycombing. There are no increased interstitial markings. There is cardiomegaly, [id number]. There is no pulmonary vascular congestion or pleural effusion. There is no hilar or mediastinal lymphadenopathy. Chest wall structures appear normal as do visualized upper abdominal structures, with the exception of stones in an otherwise normal-appearing gallbladder. IMPRESSION: 1. Cardiomegaly without pulmonary vascular congestion. 2. Normal-appearing pulmonary interstitial pattern, no evidence of fibrosis or chronic lung disease. 3. Cholelithiasis without evidence of acute cholecystitis.
== END | disposition home or self-care (01) ==
LOC: RAH 13:50
PROVIDERS: ATTEND Internal Medicine Cardiovascular Disease
DX: I51.7 Cardiomegaly (principal); R06.02 Shortness of breath; K80.20 Calculus of gallbladder without cholecystitis without obstruction
CPT/HCPCS: 71250

== ENCOUNTER → 2024-06-28 | Outpatient (CLI) | payer MEDICARE, OTHER ==
--- NOTE | 2024-07-02 14:40 | HMCSR ---
APPROVED REPORT EXAM: Two-dimensional and M-mode echocardiogram with Doppler and color Doppler. INDICATION ICD: I47.2 Ventricular tachycardia 2D Dimensions RVDd5.5 cmLVEF(%)49.5 (>50%)LVED Vol(simp.)156.0 mL IVSd1.5 (0.7-1.1cm)FS(%)25 %LVES Vol(simp.)89.0 mL LVDd5.7 (3.8-5.6cm)Ao Root(2D)3.3 (2.0-3.7cm)LVEF(%, simp.)43 % PWd1.3 (0.7-1.1cm)LVOT diam2.6 (1.8-2.4cm)LA ESV INDEX (BP)36.54 mL/m2 LVDs4.2 (2.5-4.0cm)IVC diam1.8 cm Aortic Valve AoV Vmax1.5 m/Veronica Peak GR8.7 mmHgLVOT Vmax0.8 m/s AoV VTI0.3 mAo Mean GR5.5 mmHgLVOT VTI0.16 m JASON (VMAX)2.7 cm2AVA (VTI) 2.7 cm2 Mitral Valve MV E Vmax56.3 cm/sDECEL Lizy527 ms MV A Vmax41.3 cm/sP 1/2 T47 ms E/A ratio1.4MVA (PHT)4.7 cm2 MR Max PG65 mmHg TDI E/E' Acmfgl35.9E/E' Fcljese85.9 Pulmonary Valve PV Vmax1.2 m/sPV VTI0.25 mPV Mean GR3 mmHg PV Peak GR5.5 mmHg Tricuspid Valve TR Vmax3.0 m/sRAP (EST) 8 iePxOTPL58.1 mmHg TR Peak GR36.1 mmHg Left Ventricle The left ventricle is mildly dilated. There is moderate asymmetric left ventricular hypertrophy. LVEF is 45-50%. Grade 2 diastolic dysfunction. Right Ventricle The right ventricle is severely dilated. The right ventricular systolic function is normal. Atria The left atrium is mildly dilated. The right atrium is moderately dilated. Aortic Valve Aortic valve is trileaflet. Aortic valve leaflets are sclerotic but open well. Trace aortic regurgita tion. There is no aortic valvular stenosis. Mitral Valve Mitral valve leaflets are mildly sclerotic but open well. Mitral regurgitation is trace to mild. Ther e is no mitral valve stenosis. Tricuspid Valve The tricuspid valve leaflets appear normal. There is mild to moderate tricuspid regurgitation. Right ventricular systolic pressure is estimated at 40-50 mmHg. Pulmonic Valve The pulmonic valve leaflets are thin and pliable; valve motion is normal. There is trace to mild valv ular regurgitation. Great Vessels The aortic root is normal in size. IVC is dilated and collapses >50% with inspiration. Pericardium No pericardial effusion. Conclusion The left ventricle is mildly dilated. There is moderate asymmetric left ventricular hypertrophy. LVEF is 45-50%. Grade 2 diastolic dysfunction. Mitral regurgitation is trace to mild. There is mild to moderate tricuspid regurgitation. Right ventricular systolic pressure is estimated at 40-50 mmHg.
== END | disposition home or self-care (01) ==
LOC: SHCH 09:53
PROVIDERS: ATTEND Internal Medicine Cardiovascular Disease
DX: I08.8 Other rheumatic multiple valve diseases (principal); I47.20 Ventricular tachycardia, unspecified
CPT/HCPCS: 93306

== ENCOUNTER → 2024-08-08 | Outpatient (CLI) | payer MEDICARE, OTHER ==
[~2024-08-08] MED LIST changes: -AMIO200T44 PO; +AMIO200T68 PO; +CLOP-31 PO; -FAMO20TA8 PO; +ISOS30TA92 PO; -LEVO150 PO; +METO-408 PO; +ROSU40TA88 PO
[2024-08-08 12:26] LABS: ALBUMIN 3.5 g/dL (3.5-5.0); BILIRUBIN,TOTAL 0.5 mg/dL (0.2-1.0); CREATININE 1.4 mg/dL (0.5-1.3); POTASSIUM 4.7 mmol/L (3.5-5.1); TOTAL PROTEIN, SERUM 7.7 g/dL (6.0-8.3)
== END | disposition home or self-care (01) ==
LOC: LAB 08:02
PROVIDERS: ATTEND Internal Medicine Cardiovascular Disease
DX: I10 Essential (primary) hypertension (principal); E78.5 Hyperlipidemia, unspecified; Z79.899 Other long term (current) drug therapy
CPT/HCPCS: 36415; 80053; 80061; 82652

== ENCOUNTER → 2025-01-17 | Outpatient (CLI) | payer MEDICARE, OTHER ==
[~2025-01-17] MED LIST changes: -AMIO200T68 PO; +AMIO200T73 PO; -TAMS-1 PO; +TAMS-55 PO
--- NOTE | 2025-01-18 11:24 | HMCIMG ---
EXAMINATION: CT Abdomen and Pelvis without contrast. CLINICAL HISTORY: Calculus of kidney. TECHNIQUE: Multiple contiguous axial CT images were obtained through the abdomen and pelvis. Coronal and sagittal reconstructions were also obtained. COMPARISON: Prior CT abdomen and pelvis on 02/12/2018. FINDINGS: Trace bilateral pleural effusions with overlying atelectasis. Multiple gallbladder calculi measuring 0.2 cm to 0.5 cm. Stable right renal lower pole cortical cyst measuring 3.4 x 3.7 x 3.6 cm. Stable left renal cortical cysts, mid-pole measuring 2.1 x 2.0 x 2.0 cm and lower pole measuring 5.0 x 5.0 x 5.0 cm in craniocaudal, AP, and transverse dimensions respectively. No renal/ureteric calculi in the present study. The liver, spleen, pancreas, and adrenal glands appear within normal limits. There are colonic diverticula. Rest of the bowel loops are normal in caliber without evidence of obstruction, ileus, or obvious bowel wall thickening. Right inguinal hernia containing omental fat and urinary bladder. Urinary bladder is well distended with normal wall thickening. Prostate is mildly enlarged in caliber with parenchymal calcifications. Both seminal vesicles are normal. There is no ascites or lymphadenopathy. There are atheromatous wall calcification of the aorta and iliac arteries. No acute or suspicious osseous abnormality. There are multilevel moderate degenerative spondylotic changes of the spine IMPRESSION: Cholelithiasis. Stable bilateral renal cortical cysts. No renal or ureteral calculi in the present study. No hydronephrosis. Right inguinal hernia containing omental fat and urinary bladder. No bowel obstruction or inflammation. Mild prostatomegaly. Trace bilateral pleural effusions with overlying atelectasis. /[place]
== END | disposition home or self-care (01) ==
LOC: RAH 13:12
PROVIDERS: ATTEND Urology
DX: N28.1 Cyst of kidney, acquired (principal); K80.20 Calculus of gallbladder without cholecystitis without obstruction; K40.90 Unilateral inguinal hernia, without obstruction or gangrene, not specified as recurrent; N40.0 Benign prostatic hyperplasia without lower urinary tract symptoms; K57.30 Diverticulosis of large intestine without perforation or abscess without bleeding; N32.89 Other specified disorders of bladder; J98.11 Atelectasis; M47.816 Spondylosis without myelopathy or radiculopathy, lumbar region; N20.0 Calculus of kidney
CPT/HCPCS: 74176